=== PATIENT | male | born 1985 | race Caucasian/White ===

== ENCOUNTER 2025-03-19 14:14 | Outpatient (CLI) | payer OTHER | END 2025-03-19 14:15 | disposition home or self-care (01) | LOC: ULT 14:14 | PROVIDERS: ATTEND Internal Medicine | DX: Z01.89 Encounter for other specified special examinations (principal); R10.30 Lower abdominal pain, unspecified; N50.811 Right testicular pain; N43.3 Hydrocele, unspecified | CPT/HCPCS: 74176; 76870 ==